=== PATIENT | female | born 1980 | race Caucasian/White ===

== ENCOUNTER 2023-06-18 05:35 | Day surgery (SDC) | payer OTHER ==
[~2023-06-18] VITALS: Ht 160 cm; Wt 94.0 kg
--- NOTE | ~2023-06-18 | OR ---
[facility] [address], [place] [address] Draft DATE OF OPERATION: 06/18/2023 SURGEON: Sundeep Pollard DO PREOPERATIVE DIAGNOSES: 1. Abnormal uterine bleeding. 2. Fibroid uterus. POSTOPERATIVE DIAGNOSES: 1. Abnormal uterine bleeding. 2. Fibroid uterus. 3. Omental adhesions. PROCEDURES PERFORMED: 1. Total laparoscopic hysterectomy of large uterus. 2. Lysis of adhesions. 3. Bilateral salpingectomy. 4. Cystoscopy. MANAGER CARE MANAGEMENT: Dori Jerome MD. ANESTHESIA: General. ESTIMATED BLOOD LOSS: 25 mL. SPECIMENS: Uterus with large fibroids, cervix, and bilateral fallopian tubes. DRAINS: Queen to gravity. FINDINGS: Normal external genitalia with normal clitoris, urethral meatus, bilateral Tabor's and Bartholin's glands. Normal vagina and cervix. On laparoscopy, dense omental adhesions infraumbilically. Large fibroid uterus. Bilateral tubes evidence of history of bilateral tubal ligation. Normal ovaries bilaterally. Otherwise normal pelvis. Normal right upper quadrant and appendix. Hemostatic with excellent apical support at the end PATIENT NAME: ABHAY BOOTH OPERATIVE REPORT DATE OF : 82 REPORT #: [id number] PHYSICIAN: SUNDEEP POLLARD DO (JD) PCP: ZEYNEP ORTIZ DO REPORT IS CONFIDENTIAL AND NOT TO BE RELEASED WITHOUT AUTHORIZATION [address] [address] Draft of the procedure. On cystoscopy, normal bladder with bilateral ureteral jets. COMPLICATIONS: None. INDICATIONS: Ms. Booth is a very pleasant 43-year-old female with a history of abnormal uterine bleeding. The patient with large multifibroid uterus and has failed conservative therapy. She desires definitive treatment with hysterectomy. Risks, benefits, and alternatives were discussed in detail with the patient. The patient understands and wished to proceed with the procedure. TECHNIQUE: The patient was taken to the operating room where a time-out was performed to confirm correct patient and correct procedure. General anesthesia was adequately established. The patient was prepped and draped in the dorsal lithotomy position with her feet in Yellofin stirrups. ICPs were on and running. The patient received Ancef 2 g preoperatively. She received heparin 5000 units and ICPs were on and running. A weighted speculum was placed in the vagina after a Queen catheter was inserted. The anterior lip of the cervix was grasped with an Allis clamp and the cervix was gently dilated using Hegar dilators. A VCare uterine manipulator was placed without difficulty. The surgeon's gloves were changed and attention was turned to the abdomen. Approximately 2 cm below the umbilicus, a curvilinear incision was made using a surgical scalpel after infiltration with 0.25% Marcaine with epinephrine. Fascia was grasped, elevated, and entered sharply using Metzenbaum scissors. Stay sutures of 0 Vicryl were placed in the superior and inferior edge of the fascial incision. The peritoneum was then grasped with hemostats and incised sharply. Sumit operative port was placed and pneumoperitoneum was established. Infraumbilical adhesions were palpated at the time of Sumit insertion. A 5 mm assist port was placed in the left lower quadrant under direct visualization without complication. An 8 mm expanding port was placed in the right lower quadrant under direct visualization without complication. Survey of the adhesions was performed demonstrating omental adhesions inferior to the umbilicus. These were carefully brought down using LigaSure device without complication. Survey of the abdomen and pelvis was performed demonstrating normal right upper quadrant, normal appendix and normal ovaries bilaterally. The tubes were status post tubal ligation and the uterus was large and multifibroid as expected. No endometriosis or other abnormalities of the pelvis identified. Both ureters were identified. The right utero-ovarian ligament was fulgurated and divided and the fallopian tube was divided along the mesosalpinx and delivered through the laparoscopic port and sent to pathology for further evaluation. The right round ligament was fulgurated, divided and the leaves of the broad ligament were divided. The anterior leaf was carried from the midportion of the round to the edge of the vaginal cup and divided across the superior margin of PATIENT NAME: ABHAY BOOTH OPERATIVE REPORT DATE OF : [birth year] REPORT #: [id number] PHYSICIAN: SUNDEEP POLLARD) PCP: ZEYNEP ORTIZ DO REPORT IS CONFIDENTIAL AND NOT TO BE RELEASED WITHOUT AUTHORIZATION [address] [address] Draft the cervical cup. The posterior leaf of the broad ligament was taken from the midportion of the round ligament to the uterosacral ligament and posteriorly across the posterior edge of the vaginal cup. The uterine vessels were identified, fulgurated and divided with excellent hemostasis. The process was repeated on the left with fulguration and division of the left utero-ovarian ligament, division of the fallopian tube along the mesosalpinx, division of the round ligament and division of the leaves of the broad ligament. The left uterine vessels were identified, fulgurated and divided with excellent hemostasis. Colpotomy was then performed using Sonicision device. The uterus and cervix were gently extracted through the vaginal apex without difficulty and sent to pathology for further evaluation. A wet lap sponge was placed into a surgical glove and placed in the vagina to maintain pneumoperitoneum. The pelvis was irrigated and a small amount of oozing was noted at the left edge of the colpotomy. This was made hemostatic with judicious use of bipolar cautery and Harmonic cautery. Once hemostasis was appreciated, colpotomy was closed using V-Loc suture with an Endostitch device with careful attention to incorporate the uterosacral ligaments bilaterally as well as incorporate the vaginal epithelium with each bite. Excellent approximation of the colpotomy and apical support was appreciated. The pelvis was irrigated and found to be hemostatic. Tisseel was applied to the dissection site without complication and again excellent hemostasis was appreciated. Pneumoperitoneum was reduced. Trocars were removed and infraumbilical fascia was repaired using 0 Vicryl in a running nonlocked manner. The stay sutures were plicated in the midline to reinforce the infraumbilical fascial incision. The skin was then reapproximated using 4-0 Vicryl in a running nonlocked manner with excellent hemostasis appreciated. Attention was then turned to cystoscopy. The Queen catheter was removed and a 70-degree cystoscope was placed in the urethral meatus and advanced under direct visualization to the bladder. The bladder was filled and normal bladder. Bladder dome was appreciated. Normal ureters were appreciated with bilateral ureteral jets. The bladder was drained. Queen catheter was reinserted and the patient was taken to PACU in good and stable condition. Sponge, needle, and instrument count was correct x2 at the end of the procedure Dr. Jerome was present and participated in all portions of the procedure. DO JUANA Leslie/ZACH /[id number] PATIENT NAME: ABHAY BOOTH OPERATIVE REPORT DATE OF : [birth year] REPORT #: [id number] PHYSICIAN: SUNDEEP POLLARD DO (JD) PCP: ZEYNEP ORTIZ DO REPORT IS CONFIDENTIAL AND NOT TO BE RELEASED WITHOUT AUTHORIZATION [address] [address] Draft Copies: ~ PATIENT NAME: ABHAY BOOTH OPERATIVE REPORT DATE OF : [birth year] REPORT #: [id number] PHYSICIAN: SUNDEEP POLLARD DO (JD) PCP: ZEYNEP ORTIZ DO REPORT IS CONFIDENTIAL AND NOT TO BE RELEASED WITHOUT AUTHORIZATION
[~2023-06-18 05:35] MED LIST: BENADRYL25 MG PO; IBUPROFEN IB200 MG PO
[2023-06-18 06:02] VITALS: BP 121/62
[2023-06-18] MEDS ORDERED: ZINC7.5 MG PO (06:04)
--- NOTE | 2023-06-18 09:41 | NUR ---
06/18/23 0941 Marika Walden 0931 PT TO PACU SLEEPING ORAL AIRWAY IN PLACE O2 VIA MASK. FOGGING NOTED IN MASK.
[2023-06-18 10:44] VITALS: BP 108/54
--- NOTE | 2023-06-18 10:48 | NUR ---
1135: PT RETURNS TO UNIT VIA STRETCHER FROM PACU. DROWSY ON ARRIVAL. VSS, RESP EVEN AND UNLABORED. DENIES PAIN AND NAUSEA AT THIS TIME. ANSWERS QUESTIONS APPROPRIATELY. CATES DRAINS YELLOW, FLUOROSCENE TINGED URINE AT THE BEDSIDE. LAP SITES C/D/I X3. HOT PACK TO ABD FOR COMFORT. ICE WATER PROVIDED AND POC DISCUSSED. PT VOICES UNDERSTANDING AND DENIES NEEDS AT THIS TIME. CALL LIGHT WITHIN REACH
[2023-06-18 11:35] VITALS: BP 111/55
[2023-06-18 12:40] VITALS: BP 115/56
--- NOTE | 2023-06-18 13:11 | NUR ---
1135: PT AWAKE AND ALERT IN STRETCHER. VSS, RESP EVEN AND UNLABORED. DENIES NAUSEA AND REPORTS FLORA PAIN LEVEL, 2/10. FLORA PO INTAKE. NO CHANGE TO LAP SITES X3. 10MLS NS REMOVED FROM CATES CATH BALLOON AND CATH REMOVED. DRAINED FOR 200MLS FLUROSCENE COLORED URINE. PT COMFORTABLE WITHOUT NEEDS, CALL LIGHT WITHIN REACH 1200: PT USES CALL LIGHT WITH REQUEST TO USE BATHROOM. IV CONVERTED TO SL AND SCDS REMOVED. PT DANGLES AT THE BEDSIDE. FLORA WELL, DENIES DIZZINESS AND SOB. AMBULATES TO WITH STANDBY FROM THIS RN. STEADY GAIT. SUCCESSFUL FIRST POSTOP VOID, 300MLS. MESH UNDERWEAR AND PERIPAD PROVIDED. BACK TO ROOM AND ASSISTS PT IN DRESSING 1235: PT AWAKE AND ALERT IN STRETCHER. REQUESTS PAIN RX PRIOR TO DC. ADMINSTERED ORDERED. VSS, RESP EVEN AND UNLABORED. NO CHANGE TO LAP SITES X3. DENIES NAUSEA AND REPORTS PAIN LEVEL 4/10. NO FURTHER NEEDS, CALL LIGHT WITHIN REACH
--- NOTE | 2023-06-18 13:29 | NUR ---
1320: PT REPORTS IMPROVING PAIN LEVEL, 09/14. DESIRES DC. DC INSTRUCTIONS PROVIDED AND DISCUSSED ORDERED. PT VOICES UNDERSTANDING AND DENIES QUESTIONS AND CONCERNS AT THIS TIME. SL REMOVED WITH CATH TIP INTACT AND PRESSURE APPLIED TO SITE, WNL. 1325: WHEELED OFF OF UNIT BY THIS RN. TRANSFERS INTO VEHICLE INDEPENDENTLY AND APROPRIATELY. NO PHYSICAL S/S OF DISTRESS AT THIS TIME
--- NOTE | 2023-06-24 14:14 | PATH ---
[facility] [address] [place], [place] [address] Signed SPECIMEN(S): A UTERUS, CERVIX, BILAT TUBES SPECIMEN SOURCE: A. UTERUS, CERVIX, BILAT TUBES CLINICAL HISTORY: Abnormal uterine bleeding, intramural leiomyoma of uterus. FINAL PATHOLOGIC DIAGNOSIS: Uterus with bilateral fallopian tubes, hysterectomy and bilateral salpingectomy: - 158 gram uterus with: - Leiomyomata. - Adenomyosis. - Secretory endometrium. - Cervix with immature squamous metaplasia and endocervical tunnel clusters. - Bilateral fallopian tubes with no significant histopathologic changes. DS:clv MICROSCOPIC EXAMINATION: Histologic sections of all submitted blocks are examined by light microscopy. These findings, together with the gross examination, support the pathologic diagnosis. GROSS DESCRIPTION: The specimen, labeled and designated "Emmy, uterus, cervix, bilateral fallopian tubes," is received in formalin and consists of uterus and cervix with two undesignated and bilateral fallopian tubes. The uterus measures 6.5 cm from cornu to cornu, 4.5 cm anterior to posterior and 7.5 cm from cervix to fundus. The serosal surface is pink-crocker, smooth. The anterior serosal surface shows attached penduline white, firm nodule that measure 1.6 cm in diameter. The uterus weighs 158 g. The ectocervix is pink-crocker, smooth and measures 4.7 x 4.5 cm. Sectioning through the cervix reveals pink-crocker homogenous tissue. The endometrial cavity is irregularly shaped and measures 3.3 x 1.4 cm. It is lined with pink-crocker, smooth endometrium. Sectioning through myometrium reveals well-defined, intramural, white, firm nodule that measures 2.6 cm in greatest dimension. Sectioning through the intramural and previously mentioned PATIENT NAME: ABHAY BOOTH PATHOLOGY DATE OF : 82 REPORT #: [id number] PHYSICIAN: [facility] PCP: ZEYNEP ORTIZ DO REPORT IS CONFIDENTIAL AND NOT TO BE RELEASED WITHOUT AUTHORIZATION [facility] [address], [place] [address] Signed penduline nodule reveals a white, firm, whorled surface. There are no signs of hemorrhage or necrosis. The myometrium measures 2.2 cm in thickness. The endometrium measures 0.2 cm in thickness. Both fallopian tubes show fimbria and violaceous and smooth serosa. The first fallopian tube measures 3.5 cm in length and 0.8 cm in diameter. The second fallopian tube measures 3.7 cm in length and 0.7 cm in diameter. Sectioning through both tubes is grossly unremarkable. Cassette Summary: (A1) cervix, event representative sections, posterior inked (A2) endomyometrium, event representative sections (A3) penduline nodule, event representative sections (A4) intramural nodule, event representative sections (A5) first fallopian tube, event representative sections (A6) second fallopian tube, event representative sections JS (under the direct supervision of a pathologist) The Gross Description was prepared using a voice recognition system. The report was reviewed for accuracy; however, sound-alike word errors, addition and/or deletions may occur. If there is any question about this report, please contact Client Services. PERFORMING LABORATORY: Technical component was performed by [facility], [address] [place] [id number] (CLIA# [id number]). Professional interpretation was performed by [facility], [facility] [place] [address] (CLIA#: [id number]). Diagnostician: Len Smith MD Pathologist Electronically Signed 06/24/2023 Copies: ~ PATIENT NAME: EMMYABHAY RONDA PATHOLOGY DATE OF : 82 REPORT #: [id number] PHYSICIAN: NEVA AARON PCP: ZEYNEP ORTIZ DO REPORT IS CONFIDENTIAL AND NOT TO BE RELEASED WITHOUT AUTHORIZATION
== END 2023-06-18 13:25 | disposition home or self-care (01) ==
LOC: DS 05:35
PROVIDERS: ATTEND Obstetrics & Gynecology
PROC: 0UT94ZZ Resection of Uterus, Percutaneous Endoscopic Approach (ICD-10-PCS; principal; 2023-06-18 10:30)
DX: D25.1 Intramural leiomyoma of uterus (principal); N80.03 Adenomyosis of the uterus; K66.0 Peritoneal adhesions (postprocedural) (postinfection); N93.9 Abnormal uterine and vaginal bleeding, unspecified; Z88.0 Allergy status to penicillin
CPT/HCPCS: 00840; J0131; J0330; J0690; J1100; J1644; J1885; J2250; J2405; J2704; J2765; J3010; J3490; J7121